=== PATIENT | female | born 1985 | race Hispanic/Latino ===

== ENCOUNTER 2016-11-26 21:50 | Emergency (ER) | payer SELFPAY ==
[~2016-11-26] VITALS: Ht 154.9 cm; Wt 56.8 kg
[2016-11-26 23:59] LABS: HEMATOCRIT 42.7 % (37.0-47.0); HEMOGLOBIN 14.8 g/dl (12.0-16.0); IMMATURE GRANULOCYTES 0.2 % (0.0-1.0); MEAN CELL VOLUME 88.6 fL CALC (80.0-100.0); MEAN CORPUSCULAR HGB 30.7 pG CALC (26.0-32.0); MEAN CORPUSCULAR HGB CONC 34.7 g/L CALC (32.0-36.0); NEUT# 4.01 thou/uL (2.00-7.15); RED BLOOD COUNT 4.82 mill/uL (4.20-5.60); RED CELL DISTRI WIDTH 12.8 % (11.5-15.5)
[2016-11-27 00:05] LABS: URINE BILIRUBIN - DIPSTICK NEGATIVE (NEGATIVE); URINE BLOOD DIPSTICK NEGATIVE (NEGATIVE); URINE CLARITY CLEAR; URINE COLOR YELLOW; URINE GLUCOSE - DIPSTICK NEGATIVE (NEGATIVE); URINE KETONE NEGATIVE (NEGATIVE); URINE LEUK ESTERASE NEGATIVE (NEGATIVE); URINE NITRITE - DIPSTICK NEGATIVE (Negative); URINE PROTEIN - DIPSTICK 100 mg/dL (NEG-TRACE); URINE SPECIFIC GRAVITY 1.025; URINE UROBILINOGEN - DIPSTICK 0.2 E.U./dL (0.2)
[2016-11-27 00:20] LABS: ALKALINE PHOSPHATASE 105 u/l (38-126); ANION GAP 20 (6-22 (CALC)); BILIRUBIN, TOTAL 0.2 mg/dL (0.0-1.4); BUN 15 mg/dL (7-17); BUN/CREATININE RATIO 19 (12-20 (CALC)); CALCIUM 10.5 mg/dL (8.4-10.2); CARBON DIOXIDE 24 mmol/l (22-30); CHLORIDE 103 mmol/l (95-108); CREATININE 0.8 mg/dL (0.5-1.0); GFR > 60 ML/MIN (>=60 (CALC)); GFR FOR AFR.AMER. > 60 ML/MIN (>=60 (CALC)); GLUCOSE 93 mg/dL (65-105); POTASSIUM 3.6 mmol/l (3.5-5.1); SGOT/AST 24 u/l (14-36); SGPT/ALT 32 u/l (9-52); SODIUM 144 mmol/l (137-146); TOTAL PROTEIN 9.4 g/dL (6.3-8.2)
[2016-11-27 00:27] LABS: ACT PARTIAL THROMBO TIME 27.5 SECONDS (20.0-32.5); PROTHROMBIN TIME 10.7 SECONDS (9.0-12.5)
[2016-11-27 00:32] LABS: MYOGLOBIN 15 ng/mL (0 - 62)
[2016-11-27 01:27] LABS: URINE RBC 0-2 RBC/hpf (0-5); URINE SQUAMOUS EPITHELIAL CELL RARE EPI/hpf (0-FEW); URINE WBC 0-2 WBC/hpf (0-5)
[2016-11-27 06:19] VITALS: BP 106/70
== END 2016-11-27 06:29 | disposition home or self-care (01) | DRG 313 ==
LOC: ED 21:50 → ED-I 11-27 02:23 → ED 11-27 06:29
PROVIDERS: Emergency Medicine
DX: R07.89 Other chest pain (principal)